=== PATIENT | female | born 1950 | race Caucasian/White ===

== ENCOUNTER 2017-02-10 15:20 | Emergency (ER) | payer BC ==
[2017-02-10 16:50] VITALS: BP 135/69
--- NOTE | 2017-02-10 17:01 | UC ---
Skin Complaint HPI - HPI Summary HPI Summary: Noticed trace swelling in L cheekbone yesterday afternoon, went out in the garden and when she came in her noticed swelling around her L eye. Denies itching, pain, or eye drainage/visual changes. Has seen small red spot near lateral corner of upper L eyelid. - History of Current Complaint Chief Complaint: UCGeneralIllness Time Seen by Provider: 02/10/17 16:23 Stated Complaint: EYE AREA BUG BITE/SWELLING Hx Obtained From: Patient ?: No Onset/Duration: Gradual Onset, Lasting Hours Timing: Constant Onset Severity: Mild Current Severity: Mild Location: Discrete Character: Swelling, Redness Aggravating: Nothing Alleviating: Nothing Related History: Insect Bite/Sting - Allergy/Home Medications Allergies/Adverse Reactions: Allergies Allergy/AdvReac Type Severity Reaction Status Date / Time Azithromycin Allergy Rash Verified 02/10/17 16:23 Iodine Allergy Rash Verified 02/10/17 16:23 Latex Allergy Rash Verified 02/10/17 16:23 Penicillins Allergy Hives Verified 02/10/17 16:23 Phenobarbital Allergy Facial Verified 02/10/17 16:23 Redness/Flushing Phenytoin [From Dilantin] Allergy Hives Verified 02/10/17 16:23 Sulfa Antibiotics Allergy Rash Verified 02/10/17 16:23 COCONUT Allergy Rash Uncoded 02/10/17 16:23 RASPBERRIES Allergy Rash Uncoded 02/10/17 16:23 Home Medications: Home Medications Cetirizine HCl [Zyrtec Allergy 10 MG TAB] 02/10/17 [History] Mometasone NASAL (NF) [Nasonex (NF)] 2 spray 02/10/17 [History] Review of Systems Constitutional: Negative Skin: Other - L eye puffy Eyes: Negative ENT: Negative Respiratory: Negative Cardiovascular: Negative Gastrointestinal: Negative Genitourinary: Negative Motor: Negative Neurovascular: Negative Musculoskeletal: Negative Neurological: Negative Psychological: Negative All Other Systems Reviewed And Are Negative: Yes PMH/Surg Hx/FS Hx/Imm Hx Previously Healthy: Yes - Surgical History Surgical History: Yes Surgery Procedure, Year, and Place: appendectomy 2014. C- section - Family History Known Family History: Negative: Blood Disorder - Social History Lives: With Family Alcohol Use: Daily Alcohol Amount: GLASS OF WINE Substance Use Type: None Smoking Status (MU): Former Smoker - Immunization History Most Recent Influenza Vaccination: 2016 Most Recent Pneumonia Vaccination: no Physical Exam Triage Information Reviewed: Yes Appearance: Well-Appearing, No Pain Distress, Well-Nourished Vital Signs: Initial Vital Signs Temp 98.2 F 02/10/17 16:25 Pulse 65 02/10/17 16:25 Resp 18 02/10/17 16:25 BP 135/69 02/10/17 16:25 Pulse Ox 100 02/10/17 16:25 Vital Signs Reviewed: Yes Eye Exam: Other - trace swelling L upper eyelid Eyes: Positive: Conjunctiva Clear. Negative: Conjunctiva Inflamed ENT Exam: Normal ENT: Positive: Normal ENT inspection, Hearing grossly normal, Pharynx normal, TMs normal Dental Exam: Normal Neck exam: Normal Neck: Positive: Supple, Nontender, No Lymphadenopathy Respiratory Exam: Normal Respiratory: Positive: Chest non-tender, Lungs clear, Normal breath sounds, No respiratory distress, No accessory muscle use Cardiovascular Exam: Normal Cardiovascular: Positive: RRR, No Murmur Musculoskeletal Exam: Normal Neurological Exam: Normal Neurological: Positive: Alert Psychological Exam: Normal Skin Exam: Other - red spot on L upper eyelid, trace swelling Course/Dx - Diagnoses Provider Diagnoses: insect bite versus contact dermatitis L eyelid Discharge - Discharge Plan Condition: Stable Disposition: HOME Referrals: No Primary Care Phys,NOPCP [Medical Doctor] - Additional Instructions: Though I can't say for certain what caused the swelling in your eye and face, it looks very clear that it is from the small spot on your eyelid. This could be an insect bite or a small injury, but I do not think there is any cause for concern about infections or serious problem. If you continue to have swelling you could try taking benadryl. Otherwise, simply allow it to go away on its own. If you develop pain, increasing redness, fever, or visual changes, please return or see your primary care provider.
== END 2017-02-10 17:02 | disposition home or self-care (01) ==
LOC: UCEAST 15:20
DX: H02.846 Edema of left eye, unspecified eyelid (principal); Z88.3 Allergy status to other anti-infective agents; Z88.0 Allergy status to penicillin; Z88.2 Allergy status to sulfonamides; Z87.891 Personal history of nicotine dependence
CPT/HCPCS: 99211; G0463

== ENCOUNTER 2019-02-11 09:37 | Emergency (ER) | payer MEDICARE, BC ==
--- OUTSIDE RECORDS SUMMARY | 2019-02-11 09:45 | XMS REPORT | Continuity of Care Document ---
:1950 External Reference #:[id number] Author Name Yuliana Robin M.D. Address [address] [place] [address] Care Team Providers Name Role Phone Amy Villa MD Care Team Information Salon Professional Unavailable Tammy Smith M.D. Primary Care Physician Unavailable Payers Date Identification Numbers Payment Provider Subscriber Effective: 2017 Policy Number: [id number] Medicare-National GVT.Sys Patricia Kenney PayID: [id number] [address] [place] [address] Effective: 2012 Policy Number: [id number] / Of CNMarcellus Shubham Kenney PayID: [id number] [address] [address] [place] [address] Advance Directives Description No Information Available Problems Active Problems Provider Date Allergic rhinitis Yuliana Robin M.D. Onset: 02/03/2014 Allergic rhinitis due to pollen Yuliana Robin M.D. Onset: 02/03/2014 Mild intermittent asthma Allergy Testing Onset: 12/19/2015 Mild intermittent asthma NELY Hardin Onset: 06/26/2017 Contact dermatitis Yuliana Robin M.D. Onset: 08/25/2018 Ingestion dermatitis due to food Yuliana Robin M.D. Onset: 07/23/2018 Family History Date Family Member(s) Observation Comments General Mom age 86 Renal Failure Pneumonia General Dad age 86 Ca Lung Smoker General Sister age 53 getting It here General 2 Brothers 61, 64 General Lung Cancer Father Lung Cancer Social History Type Date Description Comments Sex Unknown Marital Status Has been 1 time Lives With Spouse Home Environment Does not use air hired help Home Environment Negative For The basement is moldy Home Environment Negative For Does not use a dehumidifier Home Environment Radiant Floor heat Home Environment The floors are wood Smoke-Free Negative For Home is smoke-free Pets 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[employer] ETOH Use Consumes 1-2 glasses of wine per day Tobacco Use Start: Unknown Patient is a former quit 25 yrs ago End: Unknown smoker smoked teenager for 5 yrs quit 1975 Recreational Drug Use Denies Drug Use Smoking Status Reviewed: 01/06/18 Patient is a former quit 25 yrs ago smoker smoked teenager for 5 yrs quit 1975 Allergies, Adverse Reactions, Alerts Active Allergies Reaction Severity Comments Date Penicillin Family history 07/25/2008 Dilantin angio edema 07/25/2008 Phenobarb angio edema 07/25/2008 Iodine Urticaria 07/25/2008 Sulfa rash 12/10/2012 Azithromycin intolerance 12/10/2012 Bactrim rash 07/20/2013 Z Pack Diarrhea, Nausea 08/23/2018 Medications Active Medications SIG Qnty Indications Ordering Date Provider Mometasone Furoate Gull[place] 2 Sprays [facility]2018 Each Nostril Every MECHANICAL SERVICE REPRESENTATIVE-C 50mcg/Act Day Suspension Auvi-Q use as directed. 4units Christi Maddox, 01/15/2018 0.3mg/0.3ML im. MECHANICAL SERVICE REPRESENTATIVE-C Solution Auto-Inject Cetirizine HCL 1 by mouth every 30tabs Aliza Peterson, 08/31/2015 10mg day (copy for MECHANICAL SERVICE REPRESENTATIVE-C Tablets insurance) Montelukast Sodium Take 1 Tablet By 90tabs J30.2 Christibenjamin Maddox, 2012 Mouth Every Evening MECHANICAL SERVICE REPRESENTATIVE-C 10mg Tablets Xopenex HFA 2 inhalations every 1units Yuliana Martinez 4 hours as needed Jermaine Robin 45mcg/Act Aerosol Medications Administered in Office Medication SIG Qnty Indications Ordering Provider Date Injection Allergy Injection 11/26/2018 Injection Injection Allergy Injection 10/29/2018 Injection Injection Allergy Injection 09/22/2018 Injection Injection Allergy Injection 08/18/2018 Injection Injection Allergy Injection 07/19/2018 Injection Injection Allergy Injection 07/05/2018 Injection Injection Allergy Injection 06/21/2018 Injection Injection Allergy Injection 06/07/2018 Injection Injection Amy Villa MD 05/20/2018 Injection Injection Allergy Injection 05/20/2018 Injection Injection Allergy Injection 05/06/2018 Injection Injection Allergy Injection 04/14/2018 Injection Injection Allergy Injection 04/14/2018 Injection Injection Allergy Injection 04/02/2018 Injection Injection Allergy Injection 03/17/2018 Injection Injection Allergy Injection 03/03/2018 Injection Injection Allergy Injection 02/17/2018 Injection Injection Allergy Injection 01/29/2018 Injection Injection Allergy Injection 01/11/2018 Injection Injection Allergy Injection 12/30/2017 Injection Injection Allergy Injection 12/10/2017 Injection Injection Allergy Injection 11/18/2017 Injection Injection Allergy Injection 11/04/2017 Injection Injection Amy Villa MD 10/22/2017 Injection Injection Allergy Injection 10/22/2017 Injection Injection Allergy Injection 10/07/2017 Injection Injection Allergy Injection 08/19/2017 Injection Injection Allergy Injection 08/05/2017 Injection Injection Allergy Injection 07/22/2017 Injection Injection Allergy Injection 06/25/2017 Injection Injection Allergy Injection 06/11/2017 Injection Injection Allergy Injection 05/28/2017 Injection Injection Amy Villa MD 05/14/2017 Injection Injection Allergy Injection 05/14/2017 Injection Injection Allergy Injection 04/30/2017 Injection Injection Allergy Injection 04/16/2017 Injection Injection Allergy Injection 04/01/2017 Injection Injection Allergy Injection 03/18/2017 Injection Injection Allergy Injection 03/04/2017 Injection Injection Allergy Injection 02/20/2017 Injection Injection Allergy Injection 01/30/2017 Injection Injection Allergy Injection 01/14/2017 Injection Injection Amy Villa MD 01/01/2017 Injection Injection Allergy Injection 01/01/2017 Injection Injection Allergy Injection 12/04/2016 Injection Injection Allergy Injection 11/05/2016 Injection Injection Allergy Injection 10/08/2016 Injection Injection Allergy Injection 09/10/2016 Injection Injection Allergy Injection 08/13/2016 Injection Injection Allergy Injection 07/16/2016 Injection Injection Allergy Injection 07/02/2016 Injection Injection Allergy Injection 06/19/2016 Injection Injection Allergy Injection 06/05/2016 Injection Injection Allergy Injection 05/22/2016 Injection Injection Allergy Injection 05/09/2016 Injection Injection Allergy Injection 04/23/2016 Injection Injection Allergy Injection 04/04/2016 Injection Injection Allergy Injection 03/20/2016 Injection Injection Allergy Injection 03/07/2016 Injection Injection Allergy Injection 02/21/2016 Injection Injection Allergy Injection 02/15/2016 Injection Injection Allergy Injection 02/06/2016 Injection Injection Allergy Injection 01/30/2016 Injection Injection Allergy Injection 01/17/2016 Injection Injection Allergy Injection 01/02/2016 Injection Injection Allergy Injection 12/19/2015 Injection Injection Allergy Injection 12/05/2015 Injection Injection Allergy Injection 11/28/2015 Injection Injection Allergy Injection 11/19/2015 Injection Injection Allergy Injection 11/09/2015 Injection Injection Allergy Injection 11/01/2015 Injection Injection Allergy Injection 10/26/2015 Injection Injection Allergy Injection 10/18/2015 Injection Injection Allergy Injection 10/11/2015 Injection Injection Allergy Injection 10/04/2015 Injection Injection Allergy Injection 07/25/2015 Injection Injection Allergy Injection 07/04/2015 Injection Injection Allergy Injection 06/21/2015 Injection Injection Allergy Injection 06/07/2015 Injection Injection Allergy Injection 05/24/2015 Injection Injection Allergy Injection 05/10/2015 Injection Injection Allergy Injection 04/26/2015 Injection Injection Allergy Injection 04/12/2015 Injection Injection Allergy Injection 03/28/2015 Injection Injection Allergy Injection 03/14/2015 Injection Injection Allergy Injection 02/28/2015 Injection Injection Allergy Injection 02/14/2015 Injection Injection Allergy Injection 01/29/2015 Injection Injection Allergy Injection 01/17/2015 Injection Injection Allergy Injection 01/01/2015 Injection Injection Allergy Injection 12/13/2014 Injection Injection Allergy Injection 11/29/2014 Injection Injection Allergy Injection 11/17/2014 Injection Injection Allergy Injection 11/01/2014 Injection Injection Allergy Injection 10/18/2014 Injection Injection Allergy Injection 10/04/2014 Injection Injection Allergy Injection 09/20/2014 Injection Injection Allergy Injection 09/06/2014 Injection Injection Allergy Injection 08/23/2014 Injection Injection Allergy Injection 08/07/2014 Injection Injection Amy Villa MD 07/24/2014 Injection Injection Allergy Injection 07/24/2014 Injection Injection Allergy Injection 07/05/2014 Injection Injection Allergy Injection 06/21/2014 Injection Injection Allergy Injection 06/07/2014 Injection Injection Allergy Injection 05/24/2014 Injection Injection Allergy Injection 05/10/2014 Injection Injection Allergy Injection 04/26/2014 Injection Injection Allergy Injection 04/14/2014 Injection Injection Allergy Injection 01/16/2014 Injection Injection Allergy Injection 01/02/2014 Injection Injection Allergy Injection 12/05/2013 Injection Injection Allergy Injection 11/04/2013 Injection Injection Allergy Injection 09/26/2013 Injection Injection Allergy Injection 08/22/2013 Injection Injection Allergy Injection 07/20/2013 Injection Injection Allergy Injection 07/06/2013 Injection Injection Allergy Injection 06/08/2013 Injection Injection Allergy Injection 05/25/2013 Injection Injection Allergy Injection 05/11/2013 Injection Injection Allergy Injection 04/27/2013 Injection Injection Allergy Injection 04/13/2013 Injection Injection Allergy Injection 03/30/2013 Injection Injection Allergy Injection 03/16/2013 Injection Injection Allergy Injection 03/02/2013 Injection Injection Allergy Injection 02/16/2013 Injection Injection Amy Villa MD 02/02/2013 Injection Injection Allergy Injection 02/02/2013 Injection Injection Amy Villa MD 01/21/2013 Injection Injection Allergy Injection 01/21/2013 Injection Injection Amy Villa MD 01/05/2013 Injection Injection Allergy Injection 01/05/2013 Injection Injection Allergy Injection 12/22/2012 Injection Injection Allergy Injection 12/10/2012 Injection Injection Amy Villa MD 11/22/2012 Injection Injection Amy Villa MD 11/10/2012 Injection Injection Amy Villa MD 10/25/2012 Injection Injection Amy Villa MD 10/13/2012 Injection Injection Amy Villa MD 09/29/2012 Injection Injection Elgin Valdez M.D. 09/08/2012 Injection Injection Elgin Jermaine Valdez 08/23/2012 Injection Injection Elgin Jermaine Valdez 08/02/2012 Injection Injection [place] Jermaine Valdez 07/21/2012 Injection Injection Elgin Valdez M.D. 07/05/2012 Injection Injection [place] Jermaine Valdez 06/25/2012 Injection Injection [place] Jermaine Valdez 06/09/2012 Injection Injection [place] Jermaine Valdez 05/26/2012 Injection Injection [place] Jermaine Valdez 05/12/2012 Injection Injection [place] Jermaine Valdez 04/28/2012 Injection Injection [place] Jermaine Valdez 04/14/2012 Injection Injection [place] Jermaine Valdez 03/31/2012 Injection Injection Elgin Valdez M.D. 03/17/2012 Injection Injection Sharon Ruiz M.D. 03/03/2012 Injection Injection Sharon Ruiz, RaghavendraDOscar 02/18/2012 Injection Injection [place] José Miguel, M.DOscar 02/04/2012 Injection Injection [place] José Miguel, M.DOscar 01/23/2012 Injection Injection [place] José Miguel, M.DOscar 01/07/2012 Injection Injection [place] José Miguel, M.DOscar 12/24/2011 Injection Injection [place] José Miguel, M.DOscar 12/17/2011 Injection Injection [place] José Miguel, M.DOscar 12/12/2011 Injection Injection [place] José Miguel, M.DOscar 2011 Injection Injection [place] José Miguel, M.DOscar 11/26/2011 Injection Injection [place] José Miguel, M.DOscar 11/21/2011 Injection Injection [place] José Miguel, M.DOscar 11/12/2011 Injection Injection [place] José Miguel, M.DOscar 11/07/2011 Injection Injection [place] José Miguel, M.DOscar 10/29/2011 Injection Injection [place] José Miguel, M.DOscar 10/24/2011 Injection Injection [place] José Miguel, M.DOscar 10/17/2011 Injection Injection [place] José Miguel, M.DOscar 10/08/2011 Injection Injection [place] José Miguel, M.DOscar 10/03/2011 Injection Injection [place] José Miguel, M.DOscar 09/24/2011 Injection Injection [place] José Miguel, M.DOscar 09/17/2011 Injection Injection [place] José Miguel, M.DOscar 09/10/2011 Injection Injection [place] José Miguel, M.DOscar 09/03/2011 Injection Injection [place] José Miguel, M.DOscar 08/29/2011 Injection Injection [place] José Miguel, M.DOscar 08/20/2011 Injection Injection [place] José Miguel, M.DOscar 08/13/2011 Injection Injection Elgin Ojsé Miguel, M.DOscar 08/08/2011 Injection Injection [place] José Miguel, M.DOscar 07/30/2011 Injection Injection [place] José Miguel, M.DOscar 07/25/2011 Injection Injection [place] José Miguel, M.DOscar 07/16/2011 Injection Injection [place] José Miguel, M.DOscar 07/09/2011 Injection Injection Elgin José Miguel, M.D. 06/13/2011 Injection Immunizations CPT Code Status Date Vaccine Lot # 18929 Given 06/26/2017 Influenza Virus Vaccine, Quadrivalent, Split, [id number] Preservative Free 79732 Given 07/10/2016 Influenza Vaccine Preservative & Antibiotic Free 487314 For Im Use 70302 Given 07/19/2015 Influenza Vaccine Preservative & Antibiotic Free 400027 For Im Use 15855 Given 07/19/2014 Influenza Vaccine 050669 18462 Given 07/29/2013 Influenza Vaccine 3 Years Old + [id number] 53870 Given Unknown Influenza Vaccine 83505 Given Unknown Influenza Vaccine Vital Signs Date Vital Result Comment 01/21/2019 8:35am Height 60 inches 5'0" Weight 121.00 lb Weight 54.886 kg Respiratory Rate 20 /min Heart Rate 56 /min O2 % BldC Oximetry 97 % BP Systolic 113 mmHg BP Diastolic 65 mmHg Asthma Control Test 24 BMI (Body Mass Index) 23.6 kg/m2 08/27/2018 8:53am Height 60 inches 5'0" Weight 119.00 lb Weight 53.978 kg Respiratory Rate 18 /min Heart Rate 61 /min O2 % BldC Oximetry 98 % BP Systolic 135 mmHg BP Diastolic 79 mmHg BMI (Body Mass Index) 23.2 kg/m2 08/25/2018 3:04pm Height 60 inches 5'0" Weight 119.00 lb Weight 53.978 kg Respiratory Rate 20 /min Heart Rate 53 /min O2 % BldC Oximetry 97 % BP Systolic 146 mmHg BP Diastolic 85 mmHg Asthma Control Test 24 BMI (Body Mass Index) 23.2 kg/m2 08/23/2018 9:36am Height 60 inches 5'0" Weight 119.00 lb Weight 53.978 kg Respiratory Rate 16 /min Heart Rate 56 /min O2 % BldC Oximetry 98 % BP Systolic 140 mmHg BP Diastolic 80 mmHg Asthma Control Test 23 BMI (Body Mass Index) 23.2 kg/m2 07/23/2018 8:32am Height 60 inches 5'0" Weight 119.00 lb Weight 53.978 kg Respiratory Rate 20 /min Heart Rate 60 /min O2 % BldC Oximetry 98 % BP Systolic 116 mmHg BP Diastolic 74 mmHg Asthma Control Test 24 BMI (Body Mass Index) 23.2 kg/m2 01/15/2018 8:50am Height 60 inches 5'0" Weight 118.00 lb Weight 53.525 kg Respiratory Rate 20 /min Heart Rate 67 /min O2 % BldC Oximetry 98 % BP Systolic 122 mmHg BP Diastolic 73 mmHg Asthma Control Test 23 BMI (Body Mass Index) 23.0 kg/m2 01/06/2018 10:07am Height 60 inches 5'0" Weight 118.00 lb Weight 53.525 kg Respiratory Rate 20 /min Heart Rate 67 /min O2 % BldC Oximetry 98 % BP Systolic 100 mmHg BP Diastolic 71 mmHg BMI (Body Mass Index) 23.0 kg/m2 01/01/2018 3:17pm Height 60 inches 5'0" Weight 118.00 lb Weight 53.525 kg Respiratory Rate 18 /min Heart Rate 58 /min O2 % BldC Oximetry 98 % BP Systolic 112 mmHg BP Diastolic 67 mmHg Asthma Control Test 24 BMI (Body Mass Index) 23.0 kg/m2 12/14/2017 1:29pm Height 60 inches 5'0" Weight 118.00 lb Weight 53.525 kg Respiratory Rate 16 /min Heart Rate 60 /min O2 % BldC Oximetry 98 % BP Systolic 106 mmHg BP Diastolic 70 mmHg BMI (Body Mass Index) 23.0 kg/m2 11/30/2017 1:25pm Height 860 inches 71'8" Weight 118.00 lb Weight 53.525 kg Heart Rate 65 /min O2 % BldC Oximetry 96 % BP Systolic 118 mmHg BP Diastolic 76 mmHg BMI (Body Mass Index) 0.1 kg/m2 11/04/2017 11:03am Height 60 inches 5'0" Weight 117.00 lb Weight 53.071 kg Respiratory Rate 18 /min Heart Rate 54 /min O2 % BldC Oximetry 98 % BP Systolic 116 mmHg BP Diastolic 73 mmHg BMI (Body Mass Index) 22.8 kg/m2 06/26/2017 9:01am Height 60 inches 5'0" Weight 124.00 lb Weight 56.246 kg Respiratory Rate 16 /min Heart Rate 63 /min O2 % BldC Oximetry 98 % BP Systolic 116 mmHg BP Diastolic 70 mmHg Asthma Control Test 24 BMI (Body Mass Index) 24.2 kg/m2 06/17/2017 2:03pm Height 60 inches 5'0" Weight 122.00 lb Weight 55.339 kg Respiratory Rate 16 /min Heart Rate 59 /min O2 % BldC Oximetry 97 % BP Systolic 106 mmHg BP Diastolic 67 mmHg Asthma Control Test 23 BMI (Body Mass Index) 23.8 kg/m2 07/10/2016 2:39pm Height 60 inches 5'0" Weight 125.00 lb Weight 56.700 kg Respiratory Rate 16 /min Heart Rate 69 /min O2 % BldC Oximetry 98 % BP Systolic 99 mmHg BP Diastolic 72 mmHg BMI (Body Mass Index) 24.4 kg/m2 02/21/2016 3:24pm Height 60 inches 5'0" pt verbalized Weight 123.00 lb Weight 55.793 kg Respiratory Rate 16 /min Heart Rate 62 /min O2 % BldC Oximetry 98 % BP Systolic 117 mmHg BP Diastolic 68 mmHg BMI (Body Mass Index) 24.0 kg/m2 12/19/2015 3:47pm Height 60 inches 5'0" pt verbalized Weight 124.00 lb Weight 56.246 kg Respiratory Rate 18 /min Heart Rate 62 /min O2 % BldC Oximetry 97 % BP Systolic 117 mmHg BP Diastolic 64 mmHg BMI (Body Mass Index) 24.2 kg/m2 07/19/2015 2:58pm Height 60 inches 5'0" pt verbalized Weight 122.00 lb Weight 55.339 kg Respiratory Rate 18 /min Heart Rate 71 /min O2 % BldC Oximetry 98 % BP Systolic 127 mmHg BP Diastolic 69 mmHg Asthma Control Test 23 BMI (Body Mass Index) 23.8 kg/m2 01/17/2015 4:20pm Height 60 inches 5'0" pt verbalized Weight 118.00 lb pt verbalized Weight 53.525 kg Respiratory Rate 16 /min Heart Rate 59 /min O2 % BldC Oximetry 98 % BP Systolic 98 mmHg BP Diastolic 60 mmHg Asthma Control Test 23 BMI (Body Mass Index) 23.0 kg/m2 07/24/2014 2:33pm Height 60 inches 5'0" Weight 116.12 lb Weight 52.674 kg Respiratory Rate 18 /min Heart Rate 70 /min O2 % BldC Oximetry 97 % BP Systolic 98 mmHg BP Diastolic 58 mmHg BMI (Body Mass Index) 22.7 kg/m2 07/19/2014 3:33pm Height 60 inches 5'0" Weight 118.00 lb Weight 53.525 kg Respiratory Rate 16 /min Heart Rate 62 /min O2 % BldC Oximetry 99 % BP Systolic 104 mmHg BP Diastolic 62 mmHg BMI (Body Mass Index) 23.0 kg/m2 04/05/2014 2:29pm Height 60 inches 5'0" Weight 117.00 lb Weight 53.071 kg Respiratory Rate 16 /min Heart Rate 68 /min O2 % BldC Oximetry 97 % BP Systolic 104 mmHg BP Diastolic 68 mmHg BMI (Body Mass Index) 22.8 kg/m2 02/03/2014 2:33pm Height 60 inches 5'0" Weight 119.00 lb Weight 53.978 kg Respiratory Rate 16 /min Heart Rate 63 /min Body Temperature 98.3 F O2 % BldC Oximetry 98 % BP Systolic 102 mmHg BP Diastolic 68 mmHg Asthma Control Test 21 BMI (Body Mass Index) 23.2 kg/m2 01/18/2014 4:03pm Height 60 inches 5'0" Weight 124.00 lb Weight 56.246 kg Respiratory Rate 16 /min Heart Rate 61 /min O2 % BldC Oximetry 98 % BP Systolic 128 mmHg BP Diastolic 80 mmHg Asthma Control Test 19 BMI (Body Mass Index) 24.2 kg/m2 07/29/2013 2:38pm Weight 126.00 lb Weight 57.154 kg Respiratory Rate 16 /min Heart Rate 79 /min O2 % BldC Oximetry 98 % BP Systolic 105 mmHg BP Diastolic 70 mmHg 07/20/2013 2:14pm Height 60 inches 5'0" Weight 126.00 lb Weight 57.154 kg Respiratory Rate 16 /min Heart Rate 98 /min O2 % BldC Oximetry 70 % BP Systolic 108 mmHg BP Diastolic 68 mmHg Asthma Control Test 21 BMI (Body Mass Index) 24.6 kg/m2 12/10/2012 8:45am Weight 121.00 lb Weight 54.886 kg Respiratory Rate 18 /min Heart Rate 63 /min O2 % BldC Oximetry 99 % BP Systolic 138 mmHg BP Diastolic 82 mmHg Results Test Date Facility Test Result H/L Range Note Laboratory test 11/04/2017 [facility] Rast Soybean <0.35 kU/L [address] [place] [address] [phone] [place]ut Allergen IgE <0.35 kU/L 2 1 Class 0 (Negative <0.35) Test Performed by: [facility] [id number] [place] [address] 2 Class 0 (Negative <0.35) Test Performed by: [facility] [address] [place] [address] Procedures Date Code Description Status 11/26/2018 75141 Injection Completed 10/29/2018 56194 Injection Completed 09/22/2018 86441 Injection Completed 08/23/2018 53938 Patch Testing Completed 08/18/2018 40682 Injection Completed 07/23/2018 59689 Pre PFT Completed 07/19/2018 19172 Injection Completed 07/05/2018 29448 Injection Completed 06/21/2018 68062 Injection Completed 06/08/2018 42031 Extract 1-10 Completed 06/07/2018 78979 Injection Completed 05/20/2018 58954 Injection Completed 05/20/2018 01374 Injection Completed 05/06/2018 29539 Injection Completed 04/14/2018 78013 Injection Completed 04/14/2018 27691 Injection Completed 04/02/2018 30629 Injection Completed 03/17/2018 70606 Injection Completed 03/03/2018 65064 Injection Completed 02/17/2018 86394 Injection Completed 01/29/2018 65970 Injection Completed 01/15/2018 45143 Ingestion Challenge Test Each 60 Min Of Testing After Completed 67554 01/15/2018 88801 Ingestion Challenge Test Food, Drug Or Other Substance 102 Completed Mins 01/11/2018 64347 Injection Completed 01/06/2018 83884 Skin Test Scratch # Of Units ____ Completed 12/30/2017 39677 Injection Completed 12/14/2017 62631 Skin Test Scratch # Of Units ____ Completed 12/11/2017 68130 Extract 1-10 Completed 12/10/2017 17939 Injection Completed 11/30/2017 10823 Pre PFT Completed 11/18/2017 72234 Injection Completed 11/04/2017 93889 Injection Completed 10/22/2017 38251 Injection Completed 10/22/2017 06434 Injection Completed 10/07/2017 31168 Injection Completed 08/19/2017 30398 Injection Completed 08/05/2017 47971 Extract 1-10 Completed 08/05/2017 69770 Injection Completed 07/22/2017 00676 Injection Completed 06/25/2017 24795 Injection Completed 06/17/2017 89003 Pre PFT Completed 06/11/2017 71334 Injection Completed 05/28/2017 80854 Injection Completed 05/14/2017 44888 Injection Completed 05/14/2017 97704 Injection Completed 04/30/2017 67014 Injection Completed 04/16/2017 84142 Injection Completed 04/01/2017 94160 Injection Completed 03/18/2017 98706 Injection Completed 03/04/2017 49387 Extract 1-10 Completed 03/04/2017 27991 Injection Completed 02/20/2017 96545 Injection Completed 01/30/2017 63146 Injection Completed 01/14/2017 57150 Injection Completed 01/01/2017 45331 Injection Completed 01/01/2017 77759 Injection Completed 12/04/2016 88125 Injection Completed 11/05/2016 85916 Injection Completed 10/08/2016 30220 Injection Completed 09/10/2016 69578 Injection Completed 08/13/2016 07206 Injection Completed 07/16/2016 82997 Extract 1-10 Completed 07/16/2016 08975 Injection Completed 07/02/2016 68099 Injection Completed 06/19/2016 91912 Injection Completed 06/05/2016 09411 Injection Completed 05/22/2016 30940 Injection Completed 05/09/2016 77934 Injection Completed 04/23/2016 29036 Injection Completed 04/04/2016 29608 Injection Completed 03/20/2016 00702 Injection Completed 03/07/2016 90026 Injection Completed 02/21/2016 91850 Extract 1-10 Completed 02/21/2016 53004 Injection Completed 02/15/2016 65858 Injection Completed 02/06/2016 49824 Injection Completed 01/30/2016 24502 Injection Completed 01/17/2016 82879 Injection Completed 01/02/2016 98766 Injection Completed 12/19/2015 87792 Injection Completed 12/19/2015 92282 Pulmonary Function Test Completed 12/05/2015 89115 Injection Completed 11/28/2015 29294 Injection Completed 11/19/2015 26044 Injection Completed 11/09/2015 17148 Injection Completed 11/09/2015 32557 Extract 1-10 Completed 11/01/2015 42542 Injection Completed 10/26/2015 42040 Injection Completed 10/18/2015 89646 Injection Completed 10/11/2015 62987 Injection Completed 10/04/2015 72637 Injection Completed 07/25/2015 06272 Injection Completed 07/04/2015 21890 Injection Completed 06/21/2015 34953 Injection Completed 06/07/2015 03610 Injection Completed 05/24/2015 87018 Extract 1-10 Completed 05/24/2015 46288 Injection Completed 05/10/2015 66773 Injection Completed 04/26/2015 05641 Injection Completed 04/12/2015 32889 Injection Completed 03/28/2015 33554 Injection Completed 03/14/2015 18608 Injection Completed 02/28/2015 00196 Injection Completed 02/14/2015 77836 Injection Completed 01/29/2015 17042 Injection Completed 01/17/2015 44659 Injection Completed 01/17/2015 43648 Pre PFT Completed 01/01/2015 53583 Extract 1-10 Completed 01/01/2015 31841 Injection Completed 12/13/2014 53532 Injection Completed 11/29/2014 74060 Injection Completed 11/17/2014 69563 Injection Completed 11/01/2014 21099 Injection Completed 10/18/2014 73465 Injection Completed 10/04/2014 17468 Injection Completed 09/20/2014 65601 Injection Completed 09/06/2014 78341 Injection Completed 08/23/2014 25467 Injection Completed 08/07/2014 78465 Extract 1-10 Completed 08/07/2014 04477 Injection Completed 07/24/2014 37476 Injection Completed 07/24/2014 07276 Injection Completed 07/24/2014 17185 Pre PFT Completed 07/05/2014 51575 Injection Completed 06/21/2014 88555 Injection Completed 06/07/2014 88332 Injection Completed 05/24/2014 00797 Injection Completed 05/10/2014 49062 Injection Completed 04/26/2014 76692 Injection Completed 04/14/2014 99106 Injection Completed 01/18/2014 63407 Pulmonary Function Test Completed 01/16/2014 08516 Injection Completed 01/02/2014 04730 Extract 1-10 Completed 01/02/2014 89084 Injection Completed 12/05/2013 29660 Injection Completed 11/04/2013 47149 Injection Completed 09/26/2013 75558 Injection Completed 08/22/2013 73544 Injection Completed 07/20/2013 66235 Injection Completed 07/20/2013 77436 Oxygen Level - Pulse Oximiter Completed 07/06/2013 81994 Injection Completed 06/08/2013 48308 Injection Completed 05/25/2013 53286 Injection Completed 05/11/2013 62077 Injection Completed 04/27/2013 09406 Extract 1-10 Completed 04/27/2013 07936 Injection Completed 04/13/2013 11195 Injection Completed 03/30/2013 06172 Injection Completed 03/16/2013 82517 Injection Completed 03/02/2013 75078 Injection Completed 02/16/2013 54794 Injection Completed 02/02/2013 10088 Injection Completed 02/02/2013 26616 Injection Completed 01/21/2013 35865 Injection Completed 01/21/2013 53600 Injection Completed 01/05/2013 45295 Injection Completed 01/05/2013 07791 Injection Completed 12/22/2012 54605 Injection Completed 12/10/2012 33580 Extract 1-10 Completed 12/10/2012 40668 Injection Completed 11/22/2012 93460 Injection Completed 11/22/2012 31302 Oxygen Level - Pulse Oximiter Completed 11/22/2012 19606 Pulmonary Function Test Completed 11/10/2012 24551 Injection Completed 10/25/2012 43149 Injection Completed 10/13/2012 31502 Injection Completed 09/29/2012 60103 Injection Completed 09/08/2012 64890 Injection Completed 08/23/2012 08077 Injection Completed 08/02/2012 34923 Injection Completed 07/21/2012 95929 Injection Completed 07/05/2012 88491 Extract 1-10 Completed 07/05/2012 46243 Injection Completed 06/25/2012 81976 Injection Completed 06/09/2012 02647 Injection Completed 05/26/2012 06392 Injection Completed 05/12/2012 83767 Injection Completed 04/28/2012 73103 Injection Completed 04/14/2012 52648 Injection Completed 03/31/2012 14725 Injection Completed 03/17/2012 11930 Injection Completed 03/03/2012 67041 Injection Completed 03/03/2012 19419 Extract 1-10 Completed 02/18/2012 53553 Injection Completed 02/04/2012 22065 Injection Completed 01/23/2012 99562 Injection Completed 01/07/2012 07292 Injection Completed 01/07/2012 35639 Nitric Oxide Gas Determination Completed 01/07/2012 72513 Oxygen Level - Pulse Oximiter Completed 01/07/2012 91685 Pulmonary Function Test Completed 12/24/2011 36768 Injection Completed 12/17/2011 58052 Injection Completed 12/12/2011 14589 Injection Completed 2011 48590 Injection Completed 11/26/2011 46410 Extract 1-10 Completed 11/26/2011 43557 Injection Completed 11/21/2011 33135 Injection Completed 11/12/2011 74414 Injection Completed 11/07/2011 48412 Injection Completed 10/29/2011 74468 Injection Completed 10/24/2011 36523 Injection Completed 10/17/2011 28543 Injection Completed 10/08/2011 70424 Injection Completed 10/03/2011 46630 Injection Completed 09/24/2011 91522 Injection Completed 09/17/2011 70811 Injection Completed 09/12/2011 17450 Extract 1-10 Completed 09/10/2011 98017 Injection Completed 09/03/2011 84863 Injection Completed 08/29/2011 97236 Injection Completed 08/20/2011 42428 Injection Completed 08/13/2011 06900 Injection Completed 08/08/2011 38924 Injection Completed 07/30/2011 97451 Injection Completed 07/25/2011 98933 Injection Completed 07/16/2011 17941 Injection Completed 07/09/2011 68667 Injection Completed 06/13/2011 54515 Injection Completed 06/04/2011 89165 Extract 1-10 Completed 06/26/2010 71717 Pulmonary Function Test Completed 01/08/2009 33963 Pulmonary Function Test Completed 10/30/2008 05984 Skin Test Scratch # Of Units ____ Completed 08/14/2008 79290 Pulmonary Function Test Completed 07/24/2008 07237 Skin Test Scratch # Of Units ____ Completed Encounters Type Date Location Provider Dx Diagnosis Office Visit 01/21/2019 Macho Robin J30.1 Allergic rhinitis due 8:40a M.D. to pollen J30.89 Other allergic rhinitis J30.2 Other seasonal allergic rhinitis J30.81 Allergic rhinitis due to animal (cat) (dog) hair and dander J45.20 Mild intermittent asthma, uncomplicated Office Visit 08/27/2018 9:00a Macho Maddox J30.81 Allergic rhinitis MECHANICAL SERVICE REPRESENTATIVE-C due to animal (cat) (dog) hair and dander J30.2 Other seasonal allergic rhinitis R21 Rash and other nonspecific skin eruption J30.89 Other allergic rhinitis J30.1 Allergic rhinitis due to pollen Office Visit 08/25/2018 3:00p Macho Robin, L23.9 Allergic contact M.D. dermatitis, unspecified cause Office Visit 08/23/2018 9:30a [facility] R21 Rash and other nonspecific skin eruption Office Visit 07/23/2018 8:40a Macho Robin J45.20 Mild intermittent M.D. asthma, uncomplicated J30.1 Allergic rhinitis due to pollen J30.89 Other allergic rhinitis J30.2 Other seasonal allergic rhinitis J30.81 Allergic rhinitis due to animal (cat) (dog) hair and dander J45.20 Mild intermittent asthma, uncomplicated L27.2 Dermatitis due to ingested food Office Visit 01/15/2018 8:40a Macho Maddox, T78.07xD Anaphylactic reaction MECHANICAL SERVICE REPRESENTATIVE-C due to milk and dairy products, subs T78.07xD Anaphylactic reaction due to milk and dairy products, subs Office Visit 01/06/2018 10:00a [facility] J45.20 Mild intermittent asthma, uncomplicated J30.1 Allergic rhinitis due to pollen J30.89 Other allergic rhinitis Office Visit 01/01/2018 3:00p Macho Maddox J45.20 Mild intermittent MECHANICAL SERVICE REPRESENTATIVE-C asthma, uncomplicated J30.1 Allergic rhinitis due to pollen J30.89 Other allergic rhinitis J30.2 Other seasonal allergic rhinitis J30.81 Allergic rhinitis due to animal (cat) (dog) hair and dander Office Visit 12/14/2017 2:00p Sally Lovett45.20 Mild intermittent MECHANICAL SERVICE REPRESENTATIVE-C asthma, uncomplicated J30.89 Other allergic rhinitis J30.81 Allergic rhinitis due to animal (cat) (dog) hair and dander J30.2 Other seasonal allergic rhinitis J30.1 Allergic rhinitis due to pollen Office Visit 11/30/2017 1:20p Macho Maddox J45.20 Mild intermittent MECHANICAL SERVICE REPRESENTATIVE-C asthma, uncomplicated J30.89 Other allergic rhinitis J30.81 Allergic rhinitis due to animal (cat) (dog) hair and dander J30.2 Other seasonal allergic rhinitis J30.1 Allergic rhinitis due to pollen Office Visit 11/04/2017 11:00a Sally Lovett30.1 Allergic rhinitis MECHANICAL SERVICE REPRESENTATIVE-C due to pollen J30.2 Other seasonal allergic rhinitis J30.81 Allergic rhinitis due to animal (cat) (dog) hair and dander J30.89 Other allergic rhinitis Office Visit 06/26/2017 9:00a Anuj Lovett23 Encounter for MECHANICAL SERVICE REPRESENTATIVE-C immunization J30.1 Allergic rhinitis due to pollen J30.2 Other seasonal allergic rhinitis J30.81 Allergic rhinitis due to animal (cat) (dog) hair and dander J30.89 Other allergic rhinitis J45.20 Mild intermittent asthma, uncomplicated Office Visit 06/17/2017 2:00p [place] Christi Uldrich, J30.89 Other allergic MECHANICAL SERVICE REPRESENTATIVE-C rhinitis J30.81 Allergic rhinitis due to animal (cat) (dog) hair and dander J30.2 Other seasonal allergic rhinitis J30.1 Allergic rhinitis due to pollen Office Visit 07/10/2016 2:30p [facility] Z23 Encounter for immunization Office Visit 02/21/2016 3:20p [place], J45.20 Mild intermittent MECHANICAL SERVICE REPRESENTATIVE-C asthma, uncomplicated J30.1 Allergic rhinitis due to pollen J30.81 Allergic rhinitis due to animal (cat) (dog) hair and dander J30.89 Other allergic rhinitis J30.2 Other seasonal allergic rhinitis Z68.24 Body mass index (BMI) 24.0-24.9, adult Office Visit 07/19/2015 2:40p [place] Alizasaundra Parkerbenitezcharlotte, MECHANICAL SERVICE REPRESENTATIVE-C J30.81 Allergic rhinitis due to animal (cat) (dog) hair and dander J30.1 Allergic rhinitis due to pollen Z68.23 Body mass index (BMI) 23.0-23.9, adult Z23 Encounter for immunization J30.2 Other seasonal allergic rhinitis J30.89 Other allergic rhinitis Office Visit 01/17/2015 4:20p [place] Digna Moran, 477.8 Rhinitis Allergic PH.D, RPA-C Due To Other Allergen 477.0 Rhinitis Allergic Due To Pollen V85.1 Body Mass Index Between 19-24 Adult Office Visit 07/24/2014 2:30p [facility] 493.00 Asthma Extrinsic Unspecified Office Visit 07/19/2014 3:40p [place] Ynes Mclain, 477.0 Rhinitis Allergic Due RPA-C To Pollen 477.8 Rhinitis Allergic Due To Other Allergen 493.00 Asthma Extrinsic Unspecified V15.03 Allergy To Eggs Office Visit 04/05/2014 2:20p [place] Ynes Mclain, 461.0 Sinusitis Acute RPA-C Maxillary 477.8 Rhinitis Allergic Due To Other Allergen 477.0 Rhinitis Allergic Due To Pollen Office Visit 02/03/2014 3:20p [place] Yuliana Robin, 477.0 Rhinitis Allergic M.D. Due To Pollen 477.8 Rhinitis Allergic Due To Other Allergen 493.00 Asthma Extrinsic Unspecified 461.0 Sinusitis Acute Maxillary Office Visit 01/18/2014 3:40p [place] Ynes Mclain, 477.0 Rhinitis Allergic Due RPA-C To Pollen 477.8 Rhinitis Allergic Due To Other Allergen 493.00 Asthma Extrinsic Unspecified Office Visit 07/29/2013 2:20p [place] Ynes Mclain, 693.1 Dermatitis Due To Food RPA-C V15.03 Allergy To Eggs 477.0 Rhinitis Allergic Due To Pollen 477.8 Rhinitis Allergic Due To Other Allergen Office Visit 07/20/2013 2:00p [place] Hemalatha DuranOscar Ramirez, 477.8 Rhinitis Allergic MECHANICAL SERVICE REPRESENTATIVE-C Due To Other Allergen 477.0 Rhinitis Allergic Due To Pollen 493.00 Asthma Extrinsic Unspecified Office Visit 10/29/2009 11:20a [facility] Villa MD 472.0 Rhinitis Chronic 693.1 Dermatitis Due To Food 493.91 Asthma Unspec W/ Status Asthmaticus 995.69 Anaphylactic Shock Due To Food Other Spec Office Visit 04/30/2009 4:15p [facility] Villa MD 472.0 Rhinitis Chronic 693.1 Dermatitis Due To Food 493.91 Asthma Unspec W/ Status Asthmaticus 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.69 Anaphylactic Shock Due To Food Other Spec Office Visit 01/08/2009 3:15p [facility] Villa MD 472.0 Rhinitis Chronic 693.1 Dermatitis Due To Food 493.91 Asthma Unspec W/ Status Asthmaticus Office Visit 10/30/2008 3:45p [facility]o Villa MD 472.0 Rhinitis Chronic 693.1 Dermatitis Due To Food 493.91 Asthma Unspec W/ Status Asthmaticus 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 at [id number] - Yuliana Robin M.D.J30.1 Allergic rhinitis due to xwniefZ88.89 Other allergic rjuasdwfU92.2 Other seasonal allergic leramutqT72.81 Allergic rhinitis due to animal (cat) (dog) hair and aqtiffR59.20 Mild intermittent asthma, uncomplicatedFollow up:12 months, CHECK-UP/FOLLOW UP VISIT: Continued management of patient's medical care, sooner if neededRecommendations:Refrain from wearing perfumes/scented colognes while visiting our office. continue Montelukast and Cetirizine daily continue Mometasone 2 sprays to each nostril once daily Use Xopenex 2 puffs every 4hours as needed for cough, shortness of breath or chest tightness; call if using >2x/week consistently continue soy avoidance continue to carry AuviQ at all times
[2019-02-11 09:48] VITALS: BP 125/74
--- NOTE | 2019-02-11 13:57 | UC ---
Skin Complaint HPI - HPI Summary HPI Summary: PATIENT WOKE UP THIS MORNING WITH SWELLING AND DISCOLORATION OF THE SOFT TISSUES IN THE CORNER OF HER LEFT EYE. NO VISUAL DISTURBANCE. EXTRAOCULAR MOVEMENTS INTACT. NO PAIN IN THE EYE OR TENDERNESS OF THE SURROUNDING TISSUES. NOT ITCHY. [place] AND SUSTAINED SEVERAL INSECT BITES. SHE WONDERS IF THIS COULD BE A REACTION TO A BUG BITE. SHE ALSO HAS A HISTORY OF SEASONAL ALLERGIES AND DOES TAKE AN ANTIHISTAMINE DAILY. - History of Current Complaint Chief Complaint: UCSkin Time Seen by Provider: 02/11/19 10:49 Stated Complaint: INSECT BITE NEAR EYE Hx Obtained From: Patient Onset/Duration: Sudden Onset, Lasting Hours, Still Present Timing: Constant Onset Severity: Mild Current Severity: Mild Pain Intensity: 0 Pain Scale Used: 0-10 Numeric Location: Discrete Character: Swelling, Redness Aggravating Factor(s): Nothing Alleviating Factor(s): Nothing Associated Signs & Symptoms: Positive: Negative - Allergy/Home Medications Allergies/Adverse Reactions: Allergies Allergy/AdvReac Type Severity Reaction Status Date / Time azithromycin Allergy Hives Verified 02/11/19 09:49 iodine Allergy Rash Verified 02/11/19 09:50 latex Allergy Rash Verified 02/11/19 09:50 Penicillins Allergy Hives Verified 02/11/19 09:50 phenobarbital Allergy Flushing Verified 02/11/19 09:51 phenytoin [From Dilantin] Allergy Rash Verified 02/11/19 09:51 Sulfa (Sulfonamide Allergy Rash Verified 02/11/19 09:51 Antibiotics) COCONUT Allergy Rash Uncoded 02/10/17 16:23 RASPBERRIES Allergy Rash Uncoded 02/10/17 16:23 PMH/Surg Hx/FS Hx/Imm Hx - Additional Past Medical History Additional PMH: SEASONAL ALLERGIES - Surgical History Surgical History: Yes Surgery Procedure, Year, and Place: appendectomy 2015. C- section - Family History Known Family History: Positive: Non-Contributory Negative: Blood Disorder - Social History Alcohol Use: Daily Alcohol Amount: GLASS OF WINE Substance Use Type: None Smoking Status (MU): Former Smoker - Immunization History Most Recent Influenza Vaccination: 2016 Most Recent Pneumonia Vaccination: no Review of Systems All Other Systems Reviewed And Are Negative: Yes Constitutional: Positive: Negative Skin: Positive: Other - SWELLING, REDNESS UNDER LEFT EYE Eyes: Positive: Negative Respiratory: Positive: Negative Cardiovascular: Positive: Negative Gastrointestinal: Positive: Negative Physical Exam Triage Information Reviewed: Yes Appearance: Well-Appearing, No Pain Distress, Well-Nourished Vital Signs: Initial Vital Signs Temp 97.8 F 02/11/19 09:46 Pulse 66 02/11/19 09:46 Resp 16 02/11/19 09:46 BP 125/74 02/11/19 09:46 Pulse Ox 100 02/11/19 09:46 Vital Signs Reviewed: Yes Eyes: Positive: Conjunctiva Clear, Other: - PERRL, EOMI. MILD EDEMA SOFT TISSUES CORNER OF LEFT EYE SURROUNDING PINPOINT PAPULAR LESION ENT: Positive: Hearing grossly normal Neck: Positive: Supple Respiratory: Positive: No respiratory distress, No accessory muscle use Cardiovascular: Positive: Pulses Normal Abdomen Description: Positive: Soft Musculoskeletal: Positive: No Edema Neurological: Positive: Alert Psychological: Positive: Age Appropriate Behavior Skin: Positive: Other - PINPOINT PAPULAR LESION CORNER OF LEFT EYE WITH SURROUNDING ERYTHEMA AND MILD EDEMA. NON TENDER. Course/Dx - Course Course Of Treatment: PATIENT MAY HAVE SUSTAINED A BUG BITE TO THE CORNER OF HER LEFT EYE WITH SOME LOCALIZED INFLAMMATION AND EDEMA VERSUS SIMPLY HAVING A LOCALIZED ALLERGIC REACTION TO AN ALLERGEN. NO EVIDENCE OF INFECTION TODAY. NO INVOLVEMENT OF THE GLOBE OF THE EYE. HAVE ADVISED SHE CONTINUE TO TAKE HER OTC ANTIHISTAMINE. COOL COMPRESSES SEVERAL TIMES DAILY. FOLLOW-UP IF SYMPTOMS WORSEN. - Diagnoses Provider Diagnosis: Angioedema Discharge - Sign-Out/Discharge Documenting (check all that apply): Patient Departure All imaging exams completed and their final reports reviewed: No Studies - Discharge Plan Condition: Stable Disposition: HOME Patient Education Materials: Angioedema (ED) Referrals: Tammy Smith MD [Primary Care Provider] - If Needed Additional Instructions: THE SWELLING OF THE SOFT TISSUES AROUND YOUR EYE IS LIKELY INFLAMMATORY/ ALLERGIC IN ETIOLOGY. YOU MAY HAVE EXPERIENCED AN INSECT BITE VERSUS SIMPLY HAVING AN ALLERGEN SETTLING IN YOUR MUCOUS MEMBRANES TRIGGERING A REACTION. CONTINUE TO TAKE YOUR DAILY ANTIHISTAMINE. APPLY COOL COMPRESSES SEVERAL TIMES DAILY TO HELP PREVENT FURTHER SWELLING. DO NOT RUB/IRRITATE THE AREA. YOUR SYMPTOMS SHOULD IMPROVE OVER THE NEXT FEW DAYS. SEEK REEVALUATION IF THE SWELLING INCREASES OR SPREADS OR IF YOU DEVELOP ANY SWELLING OF THE TONGUE/LIPS OR ANY AIRWAY COMPROMISE. - Billing Disposition and Condition Condition: STABLE Disposition: Home
== END 2019-02-11 11:25 | disposition home or self-care (01) ==
LOC: UCEAST 09:37
DX: T78.3XXA Angioneurotic edema, initial encounter (principal); Z88.1 Allergy status to other antibiotic agents; Z88.0 Allergy status to penicillin; Z91.09 Other allergy status, other than to drugs and biological substances; Z91.040 Latex allergy status; Z88.2 Allergy status to sulfonamides; Z91.018 Allergy to other foods; Z87.891 Personal history of nicotine dependence; X58.XXXA Exposure to other specified factors, initial encounter; Y92.9 Unspecified place or not applicable
CPT/HCPCS: 99211; G0463